=== PATIENT | female | born 1940 | race Caucasian/White ===

== ENCOUNTER 2016-07-06 10:44 | Inpatient (IN) | payer MEDICARE, BC ==
[~2016-07-06] VITALS: Ht 160 cm; Wt 87.7 kg
[2016-07-25 05:53] VITALS: BP 142/79; PULSE 102; RESP 16; TEMP 98.3; O2SAT 98
[2016-07-25] MEDS ORDERED: GENTAMICIN SULFATE 80 MG/2 ML VIAL ONE (06:06)
[2016-07-25] MEDS ORDERED: ceFAZolin 2 GM PREMIX 50 ML ONE (06:06)
[2016-07-25] MEDS ORDERED: MIDAZOLAM HCL 2 MG/2 ML VIAL ONE (06:39)
[2016-07-25] MEDS ORDERED: APREPITANT 40 MG CAP ONE (06:39)
[2016-07-25] MEDS ORDERED: DEXAMETHASONE SOD PHOS 4 MG/ML VIAL ONE (06:39)
[2016-07-25] MEDS ORDERED: FAMOTIDINE 20 MG/2 ML VIAL ONE (06:39)
[2016-07-25] MEDS: CHLORHEXIDINE GLUCONATE 4% SOLN 120 ML BTL TOP SCH (06:45)
[2016-07-25] MEDS ORDERED: ceFAZolin 2 GM PREMIX 50 ML IV SCH (06:45)
[2016-07-25] MEDS: TRANEXAMIC ACID IV SCH ×2 (06:45→07:07)
[2016-07-25] MEDS: SODIUM CHLORIDE 0.9% IV SCH ×2 (06:45→07:07)
[2016-07-25] MEDS ORDERED: EXPAREL PERI-ARTICULAR INJECTION (TOTAL VOL. 60 ML) P-ARTICULR SCH ×2 (06:45)
[2016-07-25] MEDS ORDERED: ACETAMINOPHEN 1000 MG/100 ML VIAL IV ONE (06:50)
[2016-07-25] MEDS ORDERED: METOPROLOL TARTRATE 25 MG TAB PO PRN (07:00)
[2016-07-25] MEDS ORDERED: INSULIN HUMAN REGULAR 1,000 UNITS/10 ML VIAL SQ PRN (07:00)
[2016-07-25] MEDS ORDERED: SODIUM CHLORID 0.9% 500 ML IV SCH (07:00)
[2016-07-25] MEDS ORDERED: LACTATED RINGER'S 1000 ML IV SCH (07:00)
[2016-07-25] MEDS: LACTATED RINGER'S 1000 ML INJ 1,000 ML IV SCH ×2 (09:34→22:04)
[2016-07-25] MEDS ORDERED: DO NOT ADM ANY ANTICOAGULANT DRUGS XX PRN (09:39)
--- NOTE | 2016-07-25 09:41 | HHI.FF ---
Face to Face Verification Diagnosis: (1) Status post total replacement of left hip Physical Therapy Gait training Hip: Total hip, Protocol: Left, Posterior hip precautions, Progress to weight bearing Canvas Knee Splint: When in bed & 2 pillows btw thighs Left LE Weight Bearing: WB as tolerated Left LE Range of Motion: Active ROM Nursing Nursing: Dressing changes Dressing Changes: Daily dressing change, Coverderm/Primapore Additional Instructions remove steristrips on postop day 14. I have seen patient Stephanie Jackson on 07/25/16. My clinical findings support the need for the requested home health care services because: Ltd mobility - disease progression Limited ability to care for self High risk of falls I certify that my clinical findings support that this patient is homebound because: Post-op weakness Unsteady gait/balance Unsafe to leave home unassisted Emelyn Amin MD (Charles) Jul 25, 2016 09:41
[2016-07-25] MEDS ORDERED: SODIUM CHLORIDE 0.9% FLUSH 5 ML FLUSH IVF PRN (09:45)
[2016-07-25] MEDS ORDERED: BISACODYL 10 MG SUPP PR PRN (09:45)
[2016-07-25] MEDS ORDERED: Post-op Orders (for Pharmacy) MISC XX ONE (09:45)
[2016-07-25] MEDS ORDERED: MORPHINE SULFATE 8 MG/ML INJ IV PUSH PRN (09:45)
[2016-07-25] MEDS ORDERED: ONDANSETRON HCL 4 MG/2 ML VIAL IVP PRN (09:45)
[2016-07-25] MEDS ORDERED: ACETAMINOPHEN/HYDROcodone 325 MG/7.5 MG TAB PO PRN (09:45)
[2016-07-25] MEDS ORDERED: TRANEXAMIC ACID INJ 0 MG in SODIUM CHLORIDE 0.9% INJ 100 ML IV SCH (09:45)
[2016-07-25] MEDS: KETOROLAC TROMETHAMINE 30 MG/ML (IVP) VIAL IVP SCH ×3 (10:00→22:01)
[2016-07-25] MEDS ORDERED: TRANEXAMIC ACID IV SCH (10:00)
[2016-07-25] MEDS ORDERED: SODIUM CHLORIDE 0.9% IV SCH (10:00)
--- NOTE | 2016-07-25 10:58 | RADRPT ---
EXAM DATE/TIME: 07/25/2016 10:11 [place] COMPARISON: No previous studies available for comparison. INDICATIONS : Post op total left hip MEDICAL HISTORY : None. SURGICAL HISTORY : Total left hip ENCOUNTER: Initial ACUITY: 1 day PAIN SCORE: 0/10 LOCATION: Left Hip FINDINGS: A two view examination of the left hip was performed. There is a total hip prosthesis in good positi on. There is air in the soft tissues. CONCLUSION: Successful placement of a left hip prosthesis. Mehdi Quiroz MD on July 25, 2016 at 10:54 Board Certified Radiologist. This report was verified electronically.
[2016-07-25 11:00] VITALS: BP 137/75; PULSE 120; RESP 16; TEMP 96; O2SAT 99
[2016-07-25] MEDS: ACETAMINOPHEN/HYDROcodone 325 MG/7.5 MG TAB PO PRN (11:07)
[2016-07-25] MEDS ORDERED: LACTATED RINGER'S 1000 ML INJ 1,000 ML IV ONE (12:00)
[2016-07-25] MEDS ORDERED: ePHEDrine/NS 25 MG/5 ML SYR IV ONE (12:00)
[2016-07-25] MEDS ORDERED: ONDANSETRON HCL 4 MG/2 ML VIAL IV PUSH ONE (12:00)
[2016-07-25] MEDS ORDERED: PHENYLEPH/NS 1000 MCG/10 ML SYR IV ONE (12:00)
[2016-07-25] MEDS ORDERED: PROPOFOL 200 MG/20 ML AMP IV ONE (12:00)
--- NOTE | 2016-07-25 14:07 | PD.CONS ---
HPI [facility] Consult Requested By Reason for Consult medical management Primary Care Physician No Primary Care Physician Diagnoses: History of Present Illness patient is a 76 y/o female with osteoarthritis who underwent left total hip arthroplasty today. at the time of my evaluation she was resting comfortably with no acute distress. pain was fairly controlled. she denies any chest pain, sob, dizziness or nausea. Review of Systems Constitutional: DENIES: Fever, Weight loss, Chills, Night Sweats Eyes: DENIES: Blurred vision, Diplopia, Vision loss, Double Vision Ears, nose, mouth, throat: DENIES: Tinnitus, Vertigo, Throat pain, Epistaxis Respiratory: DENIES: Apneas, Cough, Snoring, Wheezing, Hemoptysis, Sputum production, Shortness of breath Cardiovascular: DENIES: Chest pain, Palpitations, Syncope, Dyspnea on Exertion , PND, Lower Extremity Edema, Orthopnea, Claudication Gastrointestinal: DENIES: Abdominal pain, Black stools, Bloody stools, Constipation, Diarrhea, Nausea, Vomiting, Difficulty Swallowing, Anorexia Genitourinary: DENIES: Urinary frequency, Urgency, Hematuria, Dysuria Musculoskeletal: COMPLAINS OF: Joint pain (left hip), DENIES: Muscle aches, Stiffness, Joint Swelling Integumentary: DENIES: Rash Neurologic: DENIES: Abnormal gait, Headache, Localized weakness, Paresthesias, Seizures, Speech Problems, Tremor, Poor Balance Psychiatric: DENIES: Anxiety, Confusion, Mood changes, Depression, Hallucinations, Agitation, Suicidal Ideation, Homicidal Ideation, Delusions Past Family Social History Allergies: Coded Allergies: Demerol (Verified Allergy, Unknown, Nausea/Vomiting, 07/25/16) and total loss of muscle control/incontinence Iodine (Verified Allergy, Unknown, Anaphylaxis, 07/25/16) Shellfish (Verified Allergy, Unknown, Anaphylaxis, 07/25/16) Past Medical History TIA osteoarthritis carotid artery disease Past Surgical History right carotid endarterectomy Reported Medications none Active Ordered Medications Current Medications Cefazolin Sodium/ Dextrose (Ancef 2 Gm Premix) 50 ml @ As Directed STK-MED ONCE .ROUTE Last administered on 07/25/16 07:12; Start 07/25/16 at 06:06; Stop at 06:07; Status DC Gentamicin Sulfate (Gentamicin Inj) 240 mg STK-MED ONCE .ROUTE Last administered on 07/25/16 07:35; Start 07/25/16 at 06:06; Stop 07/25/16 at 06:07 ; Status DC Famotidine (Pepcid Inj) 20 mg STK-MED ONCE .ROUTE ; Start 07/25/16 at 06:39; Stop 07/25/16 at 06:40; Status DC Midazolam HCl (Versed Inj) 2 mg STK-MED ONCE .ROUTE ; Start 07/25/16 at 06:39; Stop 07/25/16 at 06:40; Status DC Aprepitant (Emend) 40 mg STK-MED ONCE .ROUTE ; Start 07/25/16 at 06:39; Stop at 06:40; Status DC Dexamethasone Sodium Phosphate (Decadron Inj) 4 mg STK-MED ONCE .ROUTE ; Start 07/25/16 at 06:39; Stop 07/25/16 at 06:40; Status DC Chlorhexidine Gluconate 1 applic 1 applic ONCE TOP ; Start 07/25/16 at 06:45; Stop 07/28/16 at 06:44 Cefazolin Sodium/ Dextrose 50 ml @ 100 mls/hr HVAC JOURNEYMAN IV ; Start 07/25/16 at 06:45; Stop 07/28/16 at 06:44 Tranexamic Acid 701 mg/Sodium Chloride 107.01 ml @ 200 mls/ hr ONCE IV Last administered on 07/25/16 07:07; Start 07/25/16 at 06:45; Stop 07/26/16 at 06:44 Tranexamic Acid 701 mg/Sodium Chloride 107.01 ml @ 200 mls/ hr ONCE IV Last administered on 07/25/16 10:00; Start 07/25/16 at 10:00; Stop 07/25/16 at 16:00 Bupivacaine Liposome 20 ml/ Sodium Chloride 60 ml @ 120 mls/hr ONCE P-ARTICULR ; Start 07/25/16 at 06:45; Stop 07/26/16 at 06:44 Lactated Ringer's 1,000 ml @ 30 mls/hr Q24H IV Last administered on 07/25/16 05:50; Start 07/25/16 at 07:00; Stop 07/25/16 at 10:06; Status DC Sodium Chloride (NS 500 ml Inj) 500 ml @ 30 mls/hr [id number] IV ; Start 07/25/16 at 07:00; Stop 07/25/16 at 10:06; Status DC Insulin Human Regular (NovoLIN R INJ) See Protocol Table ... UNSCH X1 PRN SQ SEE PROTOCOL; Start 07/25/16 at 07:00; Stop 07/25/16 at 13:15; Status DC Metoprolol Tartrate (Lopressor) 25 mg UNSCH X1 PRN PO SEE LABEL COMMENTS; Start 07/25/16 at 07:00; Stop 07/26/16 at 06:59 Acetaminophen 1000 mg 1,000 mg STK-MED ONCE IV ; Start 07/25/16 at 06:50; Stop 07/25/16 at 06:51; Status DC Lactated Ringer's (Lr 1000 ml Inj) 1,000 ml @ 80 mls/hr [id number] IV Last administered on 07/25/16 09:34; Start 07/25/16 at 09:34 IV Flush (NS Flush) 2 ml UNSCH PRN IVF FLUSH AFTER USING IV ACCESS; Start 07/25 at 09:45 IV Flush 2 ml 2 ml BID IVF ; Start 07/25/16 at 21:00 Cefazolin Sodium/ Sodium Chloride (Ancef Inj/NS Inj) 100 ml @ 200 mls/hr Q6H IV ; Start 07/25/16 at 14:00; Stop 07/26/16 at 02:29 Miscellaneous Information (Post-op Orders (for Pharmacy)) STAT ONCE XX ; Start 07/25/16 at 09:45; Stop 07/25/16 at 10:05; Status DC Morphine Sulfate (Morphine Inj) 4 mg Q3H PRN IV PUSH BREAKTHROUGH PAIN; Start 07/25/16 at 09:45 Acetaminophen/ Hydrocodone Bitart ([place] 7.5-325 Mg) 1 tab Q4H PRN PO PAIN LESS THAN 5 ON SCALE Last administered on 07/25/16 11:07; Start 07/25/16 at 09: 45 Acetaminophen/ Hydrocodone Bitart ([place] 7.5-325 Mg) 2 tab Q4H PRN PO PAIN SCALE 5 TO 10; Start 07/25/16 at 09:45 Ketorolac Tromethamine 15 mg 15 mg Q6H IVP ; Start 07/25/16 at 10:00; Stop 07/27 at 04:01 Tranexamic Acid/ Sodium Chloride (Cyklokapron Inj/ NS Inj) 100 ml @ 200 mls/hr UNSCH IV ; Start 07/25/16 at 09:45; Stop 07/25/16 at 10:14; Status UNV Ondansetron HCl (Zofran Inj) 4 mg Q6H PRN IVP NAUSEA OR VOMITING; Start at 09:45 Docusate Sodium (Colace) 100 mg BID PO ; Start 07/26/16 at 21:00 Zolpidem Tartrate (Ambien) 5 mg HS PRN PO SLEEP; Start 07/25/16 at 21:00 Bisacodyl (Dulcolax Supp) 10 mg DAILY PRN [place] CONSTIPATION; Start 07/25/16 at 09 :45 Magnesium Hydroxide (Milk Of Magnsujey Liq) 30 ml DAILY PRN PO CONSTIPATION; Start 07/25/16 at 09:45 Aspirin (Ecotrin Ec) 81 mg BID PO ; Start 07/26/16 at 09:00 Fentanyl Citrate (fentaNYL INJ) 100 mcg STK-MED ONCE .ROUTE ; Start 07/25/16 at 09:46; Stop 07/25/16 at 09:47; Status DC Miscellaneous Information ALL NURSING DEPARTME... UNSCH PRN XX SEE LABEL COMMENTS; Start 07/25/16 at 09:39; Stop 07/26/16 at 09:38 Family History lung cancer in sister. Social History no smoking or drinking. Physical Exam Vital Signs Vital Signs Date Time Temp Pulse Resp B/P Pulse Ox O2 Delivery O2 Flow Rate FiO2 07/25/16 11:00 96.0 120 16 137/75 99 07/25/16 10:30 97.6 58 12 118/77 99 Room Air 07/25/16 10:15 61 11 105/56 99 Room Air 07/25/16 10:00 60 14 113/68 100 07/25/16 09:45 67 18 105/57 100 Nasal Cannula 4 07/25/16 09:40 97.5 65 11 105/57 99 Nasal Cannula 4 07/25/16 05:53 98.3 102 16 142/79 98 Physical Exam GENERAL: This is a well-nourished, well-developed patient, in no apparent distress. SKIN: No rashes, ecchymoses or lesions. Cool and dry. HEAD: Atraumatic. Normocephalic. No temporal or scalp tenderness. EYES: Pupils equal round and reactive. Extraocular motions intact. No scleral icterus. No injection or drainage. ENT: Nose without bleeding, purulent drainage or septal hematoma. Throat without erythema, tonsillar hypertrophy or exudate. Uvula midline. Airway patent. NECK: scar noted on the right neck CARDIOVASCULAR: Regular rate and rhythm without murmurs, gallops, or rubs. RESPIRATORY: Clear to auscultation. Breath sounds equal bilaterally. No wheezes , rales, or rhonchi. GASTROINTESTINAL: Abdomen soft, non-tender, nondistended. No hepato-splenomegaly , or palpable masses. No guarding. MUSCULOSKELETAL: Extremities without clubbing, cyanosis, or edema. No joint tenderness, effusion, or edema noted. No calf tenderness. Negative Homans sign bilaterally. NEUROLOGICAL: Awake and alert. Cranial nerves II through XII intact. Motor and sensory grossly within normal limits. Five out of 5 muscle strength in all muscle groups. Normal speech. Laboratory Laboratory Tests Test 07/25/16 06:00 Blood Type B POSITIVE Antibody Screen NEGATIVE Blood Bank Comment Assessment and Plan Assessment and Plan A/P -osteoarthritis- s/p left total hip arthroplasty continue pain control and rehab efforts- management per ortho. -history of TIA and carotid artery disease- on aspirin -DVT prophylaxis; with aspirin- per ortho thank you for the consult. Discussed Condition With the patient. Delvin Hewitt MD Jul 25, 2016 14:07
[2016-07-25 16:00] VITALS: BP 140/69; PULSE 64; RESP 16; TEMP 97.9; O2SAT 100
[2016-07-25] MEDS: SODIUM CHLORIDE 0.9% FLUSH 5 ML FLUSH IVF SCH (19:54)
[2016-07-25 19:56] VITALS: O2SAT 96
[2016-07-25 20:17] VITALS: BP 130/62; PULSE 103; RESP 19; TEMP 96; O2SAT 96
[2016-07-25] MEDS ORDERED: ZOLPIDEM TARTRATE 5 MG TAB PO PRN (21:00)
[2016-07-26] VITALS (7 sets, daily range): BP systolic 97–139; BP diastolic 53–71; PULSE 55–90; RESP 18–19; TEMP 96.1–98.6; O2SAT 96–100
[2016-07-26] MEDS: KETOROLAC TROMETHAMINE 30 MG/ML (IVP) VIAL IVP SCH ×3 (04:18→17:29)
[2016-07-26 06:22] LABS: HEMATOCRIT 34.8 % (35.0-46.0); REVIEW FLAG FINAL
--- NOTE | 2016-07-26 06:42 | PD.ORT.PN ---
Subjective Post Op Day #: 1 Subjective Remarks She is doing well. There is some pain, as expected. It is well controlled. Distance Walked 60 feet. Objective Vitals Vital Signs Date Time Temp Pulse Resp B/P Pulse Ox O2 Delivery O2 Flow Rate FiO2 07/26/16 04:16 97.3 63 19 137/69 100 07/26/16 00:28 96.1 68 18 139/71 98 07/25/16 20:17 96.0 103 19 130/62 96 07/25/16 19:56 96 21 07/25/16 16:00 97.9 64 16 140/69 100 07/25/16 11:00 96.0 120 16 137/75 99 07/25/16 10:30 97.6 58 12 118/77 99 Room Air 07/25/16 10:15 61 11 105/56 99 Room Air 07/25/16 10:00 60 14 113/68 100 07/25/16 09:45 67 18 105/57 100 Nasal Cannula 4 07/25/16 09:40 97.5 65 11 105/57 99 Nasal Cannula 4 I/O 07/25/16 07/25/16 07/25/16 07/26/16 07/26/16 07/26/16 07:00 15:00 23:00 07:00 15:00 23:00 Intake Total 2440 ml 480 ml Output Total 1900 ml Balance 540 ml 480 ml Intake Oral 840 ml 480 ml Other 1600 ml Output Urine Total 1700 ml Estimated Blood Loss 200 ml # Voids 2 2 # Bowel Movements 0 0 Result Diagram: 07/26/16 0601 Imaging Hip x-ray looks good. Objective Remarks She is OOB in the chair. The neurovascular status is intact. The dressing is dry and intact. Assessment & Plan Ortho Post Op Day #: 1 Problem List: (1) Status post total replacement of left hip Plan: Continue postop care and PT. Assessment and Plan Condition: Good. Orthopaedically stable. DVT prophylaxis: TEDs, sequentials, ASA Discharge plans: Home with [facility]. Has appointment. Emelyn Amin MD ([place]) Jul 26, 2016 06:42
[2016-07-26] MEDS: CHLORHEXIDINE GLUCONATE 4% SOLN 120 ML BTL TOP SCH (06:45)
[2016-07-26] MEDS ORDERED: HYDR-3580 PO (06:58)
[2016-07-26] MEDS ORDERED: ASPI81TA11 PO (06:58)
[2016-07-26] MEDS: MAGNESIUM HYDROXIDE SUSP 30 ML CUP PO PRN (09:05)
[2016-07-26] MEDS: ASPIRIN EC 81 MG TABEC PO SCH (09:06)
[2016-07-26] MEDS: SODIUM CHLORIDE 0.9% FLUSH 5 ML FLUSH IVF SCH ×2 (09:06→21:00)
[2016-07-26] MEDS: ACETAMINOPHEN/HYDROcodone 325 MG/7.5 MG TAB PO PRN ×2 (09:07→17:37)
[2016-07-26] MEDS: LACTATED RINGER'S 1000 ML INJ 1,000 ML IV SCH ×2 (10:34→23:04)
--- NOTE | 2016-07-26 13:22 | HHI.PR ---
Subjective Remarks looks fairly comfortable.pain is controlled. no new complaints. Objective Vitals Vital Signs Date Time Temp Pulse Resp B/P Pulse Ox O2 Delivery O2 Flow Rate FiO2 07/26/16 11:47 97.6 61 18 97/53 99 07/26/16 10:07 16 07/26/16 10:07 16 07/26/16 10:05 98 21 07/26/16 08:00 97.5 55 18 100/66 99 07/26/16 07:17 Room Air 07/26/16 04:16 97.3 63 19 137/69 100 07/26/16 00:28 96.1 68 18 139/71 98 07/25/16 20:17 96.0 103 19 130/62 96 07/25/16 19:56 96 21 07/25/16 16:00 97.9 64 16 140/69 100 I/O 07/25/16 07/25/16 07/25/16 07/26/16 07/26/16 07/26/16 07:00 15:00 23:00 07:00 15:00 23:00 Intake Total 2440 ml 480 ml 240 ml Output Total 1900 ml Balance 540 ml 480 ml 240 ml Intake Oral 840 ml 480 ml 240 ml Other 1600 ml Output Urine Total 1700 ml Estimated Blood Loss 200 ml # Voids 2 2 2 # Bowel Movements 0 0 0 Result Diagram: 07/26/16 0601 Imaging Last Impressions Hip X-Ray 07/25/16 0000 Signed Impressions: Service Date/Time: Monday, July 25, 2016 10:11 - CONCLUSION: Successful placement of a left hip prosthesis. Mehdi Quiroz MD Objective Remarks GENERAL: This is a well-nourished, well-developed patient, in no apparent distress. CARDIOVASCULAR: Regular rate and regular rhythm without murmurs, gallops, or rubs. RESPIRATORY: Clear to auscultation. Breath sounds equal bilaterally. No wheezes , rales, or rhonchi. GASTROINTESTINAL: Abdomen soft, non-tender, nondistended. Normal, active bowel sounds MUSCULOSKELETAL: Extremities without clubbing, cyanosis, or edema. NEURO: Alert & Oriented x4 to person, place, time, situation. Moves all ext x4 Medications and IVs Current Medications Cefazolin Sodium/ Dextrose (Ancef 2 Gm Premix) 50 ml @ As Directed STK-MED ONCE .ROUTE Last administered on 07/25/16 07:12; Start 07/25/16 at 06:06; Stop at 06:07; Status DC Gentamicin Sulfate (Gentamicin Inj) 240 mg STK-MED ONCE .ROUTE Last administered on 07/25/16 07:35; Start 07/25/16 at 06:06; Stop 07/25/16 at 06:07 ; Status DC Famotidine (Pepcid Inj) 20 mg STK-MED ONCE .ROUTE ; Start 07/25/16 at 06:39; Stop 07/25/16 at 06:40; Status DC Midazolam HCl (Versed Inj) 2 mg STK-MED ONCE .ROUTE ; Start 07/25/16 at 06:39; Stop 07/25/16 at 06:40; Status DC Aprepitant (Emend) 40 mg STK-MED ONCE .ROUTE ; Start 07/25/16 at 06:39; Stop at 06:40; Status DC Dexamethasone Sodium Phosphate (Decadron Inj) 4 mg STK-MED ONCE .ROUTE ; Start 07/25/16 at 06:39; Stop 07/25/16 at 06:40; Status DC Chlorhexidine Gluconate 1 applic 1 applic ONCE TOP ; Start 07/25/16 at 06:45; Stop 07/28/16 at 06:44 Cefazolin Sodium/ Dextrose 50 ml @ 100 mls/hr SITE ACQUISITION MANAGER IV ; Start 07/25/16 at 06:45; Stop 07/28/16 at 06:44 Tranexamic Acid 701 mg/Sodium Chloride 107.01 ml @ 200 mls/ hr ONCE IV Last administered on 07/25/16 07:07; Start 07/25/16 at 06:45; Stop 07/26/16 at 06:44 ; Status DC Tranexamic Acid 701 mg/Sodium Chloride 107.01 ml @ 200 mls/ hr ONCE IV Last administered on 07/25/16 10:00; Start 07/25/16 at 10:00; Stop 07/25/16 at 16:00 ; Status DC Bupivacaine Liposome 20 ml/ Sodium Chloride 60 ml @ 120 mls/hr ONCE P-ARTICULR ; Start 07/25/16 at 06:45; Stop 07/26/16 at 06:44; Status DC Lactated Ringer's 1,000 ml @ 30 mls/hr Q24H IV Last administered on 07/25/16 05:50; Start 07/25/16 at 07:00; Stop 07/25/16 at 10:06; Status DC Sodium Chloride (NS 500 ml Inj) 500 ml @ 30 mls/hr [id number] IV ; Start 07/25/16 at 07:00; Stop 07/25/16 at 10:06; Status DC Insulin Human Regular (NovoLIN R INJ) See Protocol Table ... UNSCH X1 PRN SQ SEE PROTOCOL; Start 07/25/16 at 07:00; Stop 07/25/16 at 13:15; Status DC Metoprolol Tartrate (Lopressor) 25 mg UNSCH X1 PRN PO SEE LABEL COMMENTS; Start 07/25/16 at 07:00; Stop 07/26/16 at 06:59; Status DC Acetaminophen 1000 mg 1,000 mg STK-MED ONCE IV ; Start 07/25/16 at 06:50; Stop 07/25/16 at 06:51; Status DC Lactated Ringer's (Lr 1000 ml Inj) 1,000 ml @ 80 mls/hr [id number] IV Last administered on 07/25/16 09:34; Start 07/25/16 at 09:34 IV Flush (NS Flush) 2 ml UNSCH PRN IVF FLUSH AFTER USING IV ACCESS; Start 07/25 at 09:45 IV Flush 2 ml 2 ml BID IVF Last administered on 07/26/16 09:06; Start at 21:00 Cefazolin Sodium/ Sodium Chloride (Ancef Inj/NS Inj) 100 ml @ 200 mls/hr Q6H IV Last administered on 07/26/16 01:58; Start 07/25/16 at 14:00; Stop at 02:29; Status DC Miscellaneous Information (Post-op Orders (for Pharmacy)) STAT ONCE XX ; Start 07/25/16 at 09:45; Stop 07/25/16 at 10:05; Status DC Morphine Sulfate (Morphine Inj) 4 mg Q3H PRN IV PUSH BREAKTHROUGH PAIN; Start 07/25/16 at 09:45 Acetaminophen/ Hydrocodone Bitart ([place] 7.5-325 Mg) 1 tab Q4H PRN PO PAIN LESS THAN 5 ON SCALE Last administered on 07/26/16 09:07; Start 07/25/16 at 09: 45 Acetaminophen/ Hydrocodone Bitart ([place] 7.5-325 Mg) 2 tab Q4H PRN PO PAIN SCALE 5 TO 10; Start 07/25/16 at 09:45 Ketorolac Tromethamine 15 mg 15 mg Q6H IVP Last administered on 07/26/16 09:06 ; Start 07/25/16 at 10:00; Stop 07/27/16 at 04:01 Tranexamic Acid/ Sodium Chloride (Cyklokapron Inj/ NS Inj) 100 ml @ 200 mls/hr UNSCH IV ; Start 07/25/16 at 09:45; Stop 07/25/16 at 10:14; Status UNV Ondansetron HCl (Zofran Inj) 4 mg Q6H PRN IVP NAUSEA OR VOMITING; Start at 09:45 Docusate Sodium (Colace) 100 mg BID PO ; Start 07/26/16 at 21:00 Zolpidem Tartrate (Ambien) 5 mg HS PRN PO SLEEP; Start 07/25/16 at 21:00 Bisacodyl (Dulcolax Supp) 10 mg DAILY PRN [place] CONSTIPATION; Start 07/25/16 at 09 :45 Magnesium Hydroxide (Milk Of Magnsujey Liq) 30 ml DAILY PRN PO CONSTIPATION Last administered on 07/26/16 09:05; Start 07/25/16 at 09:45 Aspirin (Ecotrin Ec) 81 mg BID PO Last administered on 07/26/16 09:06; Start 07/26/16 at 09:00 Fentanyl Citrate (fentaNYL INJ) 100 mcg STK-MED ONCE .ROUTE ; Start 07/25/16 at 09:46; Stop 07/25/16 at 09:47; Status DC Miscellaneous Information ALL NURSING DEPARTME... UNSCH PRN XX SEE LABEL COMMENTS; Start 07/25/16 at 09:39; Stop 07/26/16 at 09:38; Status DC A/P Assessment and Plan -osteoarthritis- s/p left total hip arthroplasty continue pain control and rehab efforts- management per ortho. -anemia- post-op; will monitor for now. -history of TIA and carotid artery disease- on aspirin -DVT prophylaxis; with aspirin- per Delvin Jones MD Jul 26, 2016 13:22
[2016-07-27 00:08] VITALS: BP 120/63; PULSE 56; RESP 18; TEMP 96.8; O2SAT 100
[2016-07-27] MEDS: DOCUSATE SODIUM 100 MG CAP PO SCH ×2 (00:37→08:25)
[2016-07-27] MEDS: ASPIRIN EC 81 MG TABEC PO SCH ×2 (00:37→08:25)
[2016-07-27] MEDS: KETOROLAC TROMETHAMINE 30 MG/ML (IVP) VIAL IVP SCH ×2 (04:00→04:39)
[2016-07-27] MEDS: ACETAMINOPHEN/HYDROcodone 325 MG/7.5 MG TAB PO PRN ×3 (04:37→12:18)
[2016-07-27 04:47] LABS: HEMATOCRIT 32.7 % (35.0-46.0); REVIEW FLAG FINAL
[2016-07-27] MEDS: CHLORHEXIDINE GLUCONATE 4% SOLN 120 ML BTL TOP SCH (06:45)
--- NOTE | 2016-07-27 07:23 | PD.ORT.PN ---
Subjective Post Op Day #: 2 Subjective Remarks She is doing well. There is still some pain, as expected. It is well controlled. Distance Walked 100 feet, twice. Objective Vitals Vital Signs Date Time Temp Pulse Resp B/P Pulse Ox O2 Delivery O2 Flow Rate FiO2 07/27/16 00:08 96.8 56 18 120/63 100 07/26/16 20:15 98.6 62 19 107/64 96 07/26/16 16:00 97.3 90 18 110/64 98 07/26/16 11:47 97.6 61 18 97/53 99 07/26/16 10:07 16 07/26/16 10:07 16 07/26/16 10:05 98 21 07/26/16 08:00 97.5 55 18 100/66 99 I/O 07/26/16 07/26/16 07/26/16 07/27/16 07/27/16 07/27/16 07:00 15:00 23:00 07:00 15:00 23:00 Intake Total 240 ml 1200 ml 360 ml 720 ml Output Total 1425 ml Balance 240 ml 1200 ml 360 ml -705 ml Intake Oral 240 ml 1200 ml 360 ml 720 ml Output Urine Total 1425 ml # Voids 2 2 1 2 # Bowel Movements 0 0 0 0 Result Diagram: 07/27/16 0427 Imaging Hip x-ray looks good. Last 72 hours Impressions Hip X-Ray 07/25/16 0000 Signed Impressions: Service Date/Time: Monday, July 25, 2016 10:11 - CONCLUSION: Successful placement of a left hip prosthesis. Mehdi Quiroz MD Objective Remarks She is resting comfortably, supine in bed. The neurovascular status is intact. The dressing is dry and intact. There is no erythema or induration. Assessment & Plan Ortho Post Op Day #: 2 Problem List: (1) Status post total replacement of left hip Plan: Continue postop care and PT. Discussed precautions. Assessment and Plan Condition: Good. Orthopaedically stable. DVT prophylaxis: TEDs, sequentials, ASA Discharge plans: Home with [facility]. Has appointment. Rx: [place] 7.5/500. Emelyn Amin MD ([place]) Jul 27, 2016 07:23
[2016-07-27 08:00] VITALS: BP 130/80; PULSE 96; RESP 16; TEMP 96.6; O2SAT 100
[2016-07-27] MEDS: SODIUM CHLORIDE 0.9% FLUSH 5 ML FLUSH IVF SCH (08:26)
[2016-07-27] MEDS: MAGNESIUM HYDROXIDE SUSP 30 ML CUP PO PRN (08:26)
[2016-07-27 09:26] VITALS: RESP 16
[2016-07-27] MEDS ORDERED: KETOROLAC TROMETHAMINE 30 MG/ML (IVP) VIAL IVP ONE (11:30)
--- NOTE | 2016-07-27 13:41 | MP ---
cc: Emelyn HARLEY. DATE OF SURGERY 07/25/2016 PREOPERATIVE DIAGNOSIS Primary osteoarthritis left hip. POSTOPERATIVE DIAGNOSIS Primary osteoarthritis left hip. OPERATION PERFORMED Left total hip arthroplasty with [place] prosthesis. SURGEON Brady Harley MD [employer] FRANCISCA Garcia ANESTHESIA Spinal with supplemental local INDICATIONS AND FINDINGS This 76-year-old woman has had longstanding arthritis in her left hip that has been treated with anti-inflammatory agents, analgesics, activity modification, exercise without any improvement. This has been worsening for several years. She is only able to walk a short distance because of the pain. She has groin pain, inability to abduct, difficulty with stairs and with chairs. Physical findings showed limited range of motion of the left hip with an antalgic gait on the left. X-rays showed severe arthritis with loss of articular cartilage to [id number] with osteophytes and degenerative cysts. Operative findings were consistent with the radiographic findings with significant arthritis in the in the hip itself with loss of articular cartilage and osteophytes. PROSTHESIS USED [place] prosthesis with the acetabulum being a titanium hemispherical cluster cup size 54 mm outer diameter with a 0 degree 32 mm inner diameter polyethylene insert, which is X3 polyethylene. Two screws were used. The femoral component was an Accolade II size 4 x 127 degrees neck length. The femoral head was a cobalt chrome LFIT head size 32 x +0 neck length. PROCEDURE The patient was brought to the clean-air operating suite and a spinal anesthetic was administered. She was placed in the lateral position on a Biomet lateral positioner with an axillary roll in position. She was then prepped with alcohol, Hibiclens and Chloraprep and draped in the usual manner with the hip draped free. An appropriate time-out procedure was carried out. Local anesthesia was administered in the incision site prior to making the incision. The incision was made approximately 12 cm in length longitudinally over the posterolateral aspect of the greater trochanter. The incision was deepened through the subcutaneous tissues to the fascia eva and gluteus fascia which were incised in line with their fibers in the skin incision. A Charnley retractor was inserted with appropriate towels. The sciatic nerve was identified and protected throughout the procedure. With the hip internally rotated, the external rotators were released off the posterior aspect of the greater trochanter. A posterior capsulotomy was carried out with a posteriorly based flap. The hip was dislocated. The femoral neck was transected at the appropriate level. The femoral head was removed. Femoral preparation was started with a box osteotome followed by a canal finding awl. Broaching was then carried out up to size four. At size 4, this was then repositioned after calcar planing. The acetabular soft tissues were debrided. Acetabular reaming was started at size 44 and went in 1-mm increments up to size 54. A trial prosthesis was inserted. This was not quite appropriate so additional reaming was carried out deepening the acetabulum slightly. After this was accomplished and it was verify that there was no penetration at all into the pelvis, the trial prosthesis was impacted into place and seated quite appropriately. After this was removed, the Tritanium cluster cup shell was impacted into place. This is a size 54 mm outer diameter. When this was seated according to anatomic landmarks and the alignment of the patient on the table, the drill holes were made and two screws were placed in through the dome holes. The 32-mm inner diameter 0 degrees liner was then impacted in place and seated appropriately. Local anesthesia was administered throughout the capsule. The trial femoral neck for a 127 degrees prosthesis was positioned with the -4 mm neck length. This hip was taken through a range of motion with there being good stability and no pistoning, but the knee appeared to be slightly short. This was removed and a size zero was inserted. The leg lengths appeared to be equal. There was excellent stability and had excellent motion. There was no pistoning. The femoral component was then removed. The broach was removed. The medullary canal was irrigated. A size 4 x 127 degree Accolade II stem was impacted into place and seated appropriately. A trial head was then positioned for the +0 head. This was taken through a range of motion and the findings were comparable to that with the broach. This was then removed. The trunnion was cleaned and dried. The LFIT head was then inserted onto the femoral component and seated appropriately. The hip was reduced. The range of motion was excellent. The stability was excellent. The leg lengths were appropriate. There was no pistoning. The remainder of the local anesthetic was administered into the hip area. Wound closure then commenced using #1 Vicryl interrupted transosseous sutures with a Garrison technique for repair of the capsule and external rotators. The repairs were made over a bony bridge. The sciatic nerve was inspected. This was an intact. The fascia eva and gluteus fascia were repaired with #1 Vicryl interrupted [id number] sutures. The subcutaneous tissues were closed with 2-0 Vicryl interrupted simple sutures with buried knots. The skin was closed with continuous subcuticular closure of 4-0 Monocryl. The wound was dressed with Steri-Strips followed by dry dressing, ABD pad a Medipore compression hip dressing. The patient was then placed into the knee immobilizer and transferred to the recovery room in satisfactory condition having tolerated the procedure well. Counts were correct. Specimens none. Estimated blood loss 200 mL. MD ISAÍAS Moore/ANA /8:50 AM /12:23 PM
== END 2016-07-27 12:29 | disposition home health service (06) | DRG 470 ==
LOC: HSDI 07-25 05:33 → N06B 07-25 11:05
PROVIDERS: ADMIT Orthopaedic Surgery; ATTEND Orthopaedic Surgery
PROC: 0SRB02A Replacement of Left Hip Joint with Metal on Polyethylene Synthetic Substitute, Uncemented, Open Approach (ICD-10-PCS; principal; 2016-07-25 06:50)
DX: M16.12 Unilateral primary osteoarthritis, left hip (principal); D64.9 Anemia, unspecified; Z86.73 Personal history of transient ischemic attack (TIA), and cerebral infarction without residual deficits; Z91.013 Allergy to seafood
CPT/HCPCS: 73502; 85014; 85018; 86850; 86900; 86901; 94150; C1776; J0131; J0690; J1100; J1580; J1885; J2250; J2370; J2405; J3010; J7120; J8501; L1830

== ENCOUNTER → 2016-07-15 | Outpatient (CLI) | payer MEDICARE, BC ==
[~2016-07-15] MED LIST: ASPI81TA11 PO; HYDR-3580 PO
[2016-07-15 09:24] LABS: BLOOD, URINE TRACE (NEG); COMMENT (UR) CATH-CULT NOT IND; CULTURE IF INDICATED CATH CULTURE NOT IND; GLUCOSE,URINE NEG (NEG); KETONE, URINE NEG (NEG); NITRITE,URINE NEG (NEG); PH, URINE 6.5 (5.0-8.5); SQUAMOUS EPITHELIAL CELL URINE <1 /hpf (0-5); URINE COLOR LIGHT-YELLOW (YELLW/STRAW)
[2016-07-15 09:28] LABS: HEMATOCRIT 40.7 % (35.0-46.0); MEAN CELL VOLUME 88.8 FL (80.0-100.0); MEAN CORPUSCULAR HEMOGLOBIN 29.5 PG (27.0-34.0); MEAN CORPUSCULAR HGB CONC 33.2 % (32.0-36.0); PLATELET COUNT 168 TH/MM3 (150-450); RED BLOOD COUNT 4.58 MIL/MM3 (4.00-5.30); RED CELL DISTRIBUTION WIDTH 13.4 % (11.6-17.2); REVIEW FLAG FINAL; WHITE BLOOD COUNT 5.1 TH/MM3 (4.0-11.0)
[2016-07-15 09:29] LABS: APTT (PATIENT) 26.4 SEC (24.3-30.1); PROTHROMBIN TIME - PATIENT 10.6 SEC (9.8-11.6)
[2016-07-15 09:52] LABS: BICARBONATE 29.6 MEQ/L (21.0-32.0); POTASSIUM 4.5 MEQ/L (3.5-5.1)
--- NOTE | 2016-07-16 18:18 | EKG ---
Date Performed: 07/15/2016 Time Performed: 09:01:51 PTAGE: 76 years EKG: Sinus rhythm WITH SINUS ARRHYTHMIA NORMAL ECG NO PREVIOUS TRACING DOCTOR: Radames David Interpretating Date/Time 07/16/2016 18:13:31
== END ==
LOC: CPRE 08:21
PROVIDERS: ATTEND Orthopaedic Surgery
DX: Z01.810 Encounter for preprocedural cardiovascular examination (principal); Z01.812 Encounter for preprocedural laboratory examination; M16.12 Unilateral primary osteoarthritis, left hip
CPT/HCPCS: 36415; 80048; 81001; 85027; 85610; 85730; 93005